=== PATIENT | female | born 1995 | race Caucasian/White ===

== ENCOUNTER 2024-03-09 10:43 | Observation (INO) | payer OTHER ==
[~2024-03-09] VITALS: Ht 160 cm; Wt 102.1 kg
[2024-03-09 10:47] VITALS: BP 170/110; PULSE 98; RESP 18; TEMP 98
[2024-03-09 11:29] LABS: BASOPHILS # (AUTO) 0.04 K/uL (0.00-0.20); BASOPHILS % (AUTO) 0.3 % (0.0-5.0); EOSINOPHILS # (AUTO) 0.24 K/uL (0.00-0.70); EOSINOPHILS % (AUTO) 1.8 % (0.0-8.0); HEMATOCRIT 34.5 % (36-48); IMMATURE GRANULOCYTE ABSOLUTE 0.08 K/uL (0-1); LYMPHOCYTES # (AUTO) 1.6 K/uL (1.0-4.8); LYMPHOCYTES % (AUTO) 11.4 % (21.0-51.0); MEAN CORPUSCULAR HGB CONC 33.9 g/dL (32.0-36.0); MEAN CORPUSCULAR VOLUME 91.5 fL (79-99); MONOCYTES # (AUTO) 0.7 K/uL (0.1-1.0); MONOCYTES % (AUTO) 5.4 % (3.0-13.0); NEUTROPHILS % (AUTO) 80.5 % (40.0-77.0); PLATELET COUNT (AUTO) 258 K/uL (130-400); RED BLOOD CELL COUNT(AUTO) 3.77 MIL/uL (4.00-5.50); RED CELL DISTRIBUTION WIDTH 13.1 % (11.0-15.5); WHITE BLOOD COUNT (AUTO) 13.6 K/uL (4.8-10.8)
[2024-03-09 11:30] LABS: APPEARANCE,URINE CLEAR (CLEAR); BILIRUBIN,URINE NEGATIVE (NEGATIVE); COLOR,URINE COLORLESS (YELLOW); GLUCOSE, URINE (UA) NEGATIVE (NEGATIVE); KETONES,URINE NEGATIVE (NEGATIVE); LEUKOCYTE ESTERASE ,URINE 75 Leu/uL (NEGATIVE); NITRATE,URINE NEGATIVE (NEGATIVE); OCCULT BLOOD,URINE NEGATIVE (NEGATIVE); PH,URINE 6.5 (5.0-8.0); PROTEIN,URINE NEGATIVE (NEGATIVE); UROBILINOGEN,URINE 0.2 mg/dL (0.2-1.0)
[2024-03-09 11:32] LABS: ADD UA MICROSCOPIC YES
[2024-03-09 11:36] LABS: RBC,URINE 0-1 /HPF (0-1); SQUAMOUS EPITHELIAL CELL,UR FEW /HPF (0-2)
[2024-03-09 11:39] LABS: CREATININE 0.6 mg/dL (0.5-1.0); POTASSIUM 4.1 mmol/L (3.5-5.1)
[2024-03-09 11:41] LABS: INR 0.94 (0.85-1.15); PROTHROMBIN TIME 10.2 SEC (9.6-11.6)
[2024-03-09 11:43] LABS: ALBUMIN 3.1 g/dL (3.5-5.0); BILIRUBIN,TOTAL 0.3 mg/dL (0.2-1.0); PARTIAL THROMBOPLASTIN TIME 28.5 SEC (26.3-35.5); TOTAL PROTEIN, SERUM 7.1 g/dL (6.0-8.3); URIC ACID 4.9 mg/dL (2.6-7.2)
== END 2024-03-09 12:52 | disposition home or self-care (01) ==
LOC: EDH 10:43 → LDH 10:44
PROVIDERS: ADMIT Obstetrics & Gynecology; ATTEND Obstetrics & Gynecology
DX: O13.3 Gestational [pregnancy-induced] hypertension without significant proteinuria, third trimester (principal); Z3A.30 30 weeks gestation of pregnancy; Z79.899 Other long term (current) drug therapy
CPT/HCPCS: 59025; 84550; 80053; 85025; 85384; 85610; 85730; 87086; 81001; 36415; G0378

== ENCOUNTER → 2024-03-10 | Outpatient (CLI) | payer OTHER ==
[2024-03-10 13:32] LABS: CREATININE,SERUM FOR CRCL 0.6 mg/dL (0.6-1.3)
== END | disposition home or self-care (01) ==
LOC: LAB 11:41
PROVIDERS: ATTEND Obstetrics & Gynecology
DX: I10 Essential (primary) hypertension (principal)
CPT/HCPCS: 82575; 84156

== ENCOUNTER 2024-04-13 14:05 | Observation (INO) | payer OTHER ==
[~2024-04-13] VITALS: Ht 160 cm; Wt 102.5 kg
[2024-04-13 14:21] VITALS: BP 144/103; PULSE 99; RESP 20; TEMP 98
[2024-04-13 14:58] LABS: BASOPHILS # (AUTO) 0.06 K/uL (0.00-0.20); BASOPHILS % (AUTO) 0.4 % (0.0-5.0); EOSINOPHILS # (AUTO) 0.16 K/uL (0.00-0.70); EOSINOPHILS % (AUTO) 1.2 % (0.0-8.0); HEMATOCRIT 35.9 % (36-48); IMMATURE GRANULOCYTE ABSOLUTE 0.12 K/uL (0-1); LYMPHOCYTES # (AUTO) 1.5 K/uL (1.0-4.8); MEAN CORPUSCULAR HEMOGLOBIN 31.1 pg (27.0-33.0); MEAN CORPUSCULAR HGB CONC 33.4 g/dL (32.0-36.0); MONOCYTES # (AUTO) 0.7 K/uL (0.1-1.0); MONOCYTES % (AUTO) 5.4 % (3.0-13.0); NEUTROPHILS # (AUTO) 11.1 K/uL (1.8-7.7); NEUTROPHILS % (AUTO) 81.1 % (40.0-77.0); PLATELET COUNT (AUTO) 241 K/uL (130-400); RED BLOOD CELL COUNT(AUTO) 3.86 MIL/uL (4.00-5.50); RED CELL DISTRIBUTION WIDTH 13.2 % (11.0-15.5); WHITE BLOOD COUNT (AUTO) 13.7 K/uL (4.8-10.8)
[2024-04-13 14:59] LABS: APPEARANCE,URINE CLEAR (CLEAR); BILIRUBIN,URINE NEGATIVE (NEGATIVE); COLOR,URINE COLORLESS (YELLOW); GLUCOSE, URINE (UA) NEGATIVE (NEGATIVE); KETONES,URINE NEGATIVE (NEGATIVE); LEUKOCYTE ESTERASE ,URINE NEGATIVE Leu/uL (NEGATIVE); NITRATE,URINE NEGATIVE (NEGATIVE); OCCULT BLOOD,URINE NEGATIVE (NEGATIVE); PH,URINE 6.5 (5.0-8.0); PROTEIN,URINE NEGATIVE (NEGATIVE); UROBILINOGEN,URINE 0.2 mg/dL (0.2-1.0)
[2024-04-13 15:06] LABS: ADD UA MICROSCOPIC YES; SQUAMOUS EPITHELIAL CELL,UR FEW /HPF (0-2)
[2024-04-13 15:12] LABS: INR <= 0.93 (0.85-1.15)
[2024-04-13 15:13] LABS: PARTIAL THROMBOPLASTIN TIME 24.2 SEC (26.3-35.5)
[2024-04-13 15:16] LABS: ALBUMIN 3.4 g/dL (3.5-5.0); BILIRUBIN,TOTAL 0.5 mg/dL (0.2-1.0); CREATININE 0.7 mg/dL (0.5-1.0); POTASSIUM 4.1 mmol/L (3.5-5.1); TOTAL PROTEIN, SERUM 7.1 g/dL (6.0-8.3); URIC ACID 5.1 mg/dL (2.6-7.2)
[2024-04-13 15:21] LABS: FIBRINOGEN 622 mg/dL (180-350)
--- NOTE | 2024-04-13 15:34 | HMCIMG ---
US FBP WO NON-STRESS HISTORY: well-being COMPARISON: None TECHNIQUE: Ultrasound biophysical profile study was performed. FINDINGS: Patient scored a total of 8 points with 2 points each for breathing movements, gross body movements, tone and amniotic fluid volume. Fetus is in cephalic presentation with longitudinal lie. heart rate is 150 to beats per minute. Amniotic fluid index is 14.7 centimeter. Placenta is located posteriorly. IMPRESSION: 1. Normal ultrasound biophysical profile study.
== END 2024-04-13 15:55 | disposition home or self-care (01) ==
LOC: EDH 14:05 → LDH 14:28
PROVIDERS: ADMIT Obstetrics & Gynecology; ATTEND Obstetrics & Gynecology
DX: O13.3 Gestational [pregnancy-induced] hypertension without significant proteinuria, third trimester (principal); Z3A.35 35 weeks gestation of pregnancy; Z79.899 Other long term (current) drug therapy
CPT/HCPCS: 84550; 80053; 85025; 85384; 85610; 85730; 81001; 36415; 76819; G0378; G0379; 59025

== ENCOUNTER 2024-04-20 11:01 | Observation (INO) | payer OTHER ==
[~2024-04-20] VITALS: Ht 160 cm; Wt 101.6 kg
[2024-04-20 11:02] VITALS: BP 144/97; PULSE 93; RESP 20; TEMP 98.6
--- NOTE | 2024-04-20 11:50 | HMCIMG ---
ULTRASOUND, BIOPHYSICAL PROFILE CLINICAL DATA INFORMATION: WELL BEING FINDINGS: breathin body movement: 2 tone: 2 Amniotic fluid volume: 2 Total: 8 IMPRESSION: Normal biophysical profile ultrasound, as described.
== END 2024-04-20 12:17 | disposition home or self-care (01) ==
LOC: EDH 11:01 → LDH 11:02
PROVIDERS: ADMIT Obstetrics & Gynecology; ATTEND Obstetrics & Gynecology
DX: O13.3 Gestational [pregnancy-induced] hypertension without significant proteinuria, third trimester (principal); Z3A.36 36 weeks gestation of pregnancy; Z79.899 Other long term (current) drug therapy
CPT/HCPCS: 76819; G0378; G0379; 59025

== ENCOUNTER 2024-04-25 13:42 | Inpatient (IN) | payer OTHER ==
[~2024-04-25] VITALS: Ht 160 cm; Wt 102.1 kg
[2024-04-25] MEDS ORDERED: ceFAZolin SODIUM 2 GM VIAL IVP PRN ×2 (14:30→15:00)
[2024-04-25] MEDS ORDERED: CALDOLOR 800MG+NS 250ML 250 ML IV PRN (14:30)
[2024-04-25] MEDS ORDERED: metoCLOPRAmide 10 MG/2 ML VIAL IVP PRN (14:30)
[2024-04-25 14:38] LABS: HEMATOCRIT 36.3 % (36-48); MEAN CORPUSCULAR HEMOGLOBIN 30.8 pg (27.0-33.0); MEAN CORPUSCULAR HGB CONC 33.1 g/dL (32.0-36.0); MEAN CORPUSCULAR VOLUME 93.1 fL (79-99); RED BLOOD CELL COUNT(AUTO) 3.9 MIL/uL (4.00-5.50); RED CELL DISTRIBUTION WIDTH 13.8 % (11.0-15.5); WHITE BLOOD COUNT (AUTO) 13.1 K/uL (4.8-10.8)
[2024-04-25] MEDS: metoCLOPRAmide 10 MG/2 ML VIAL IVP ONE (15:00)
[2024-04-25] MEDS: ondanSETRON 4MG INJ IVP ONE (15:00)
[2024-04-25] MEDS: LACTATED RINGERS 1000ML 1,000 ML IV SCH (15:01)
[2024-04-25 15:26] LABS: HIV 1&2 ANTIBODY Non-Reactive (Negative)
[2024-04-25 15:27] LABS: HIV-1 p24 Antigen Non-Reactive (Negative)
[2024-04-25] MEDS ORDERED: morPHINE PF 100MG/10ML AMP IV ONE (16:35)
[2024-04-25] MEDS ORDERED: OXYTOCIN LR IV ONE (16:36)
[2024-04-25] MEDS: ceFAZolin SODIUM 3 GM VIAL IVPB ONE (16:42)
[2024-04-25] MEDS ORDERED: ePHEDrine SULFate 50 MG/ML AMPULE ONE (16:49)
[2024-04-25] MEDS ORDERED: MEPERIDINE-PF 75 MG/ML SYG IM PRN (18:00)
[2024-04-25] MEDS ORDERED: 0.9%NACL 10ML VIAL IVP PRN (18:00)
[2024-04-25] MEDS ORDERED: PROMETHAZINE HCL 25 MG/ML 1ML AMPULE IM PRN (18:00)
[2024-04-25] MEDS: DEXTROSE 5 %-0.45 % NACL 1,000 ML IV PRN (21:50)
[2024-04-25 23:36] VITALS: BP 127/86; PULSE 84; RESP 18; TEMP 98.6
[2024-04-26] MEDS: CALDOLOR 800MG+NS 250ML 250 ML IV SCH (01:45)
[2024-04-26] MEDS ORDERED: BisaCODYL 10 MG SUPP.RECT RC PRN (04:30)
[2024-04-26] MEDS ORDERED: HYDROcodone/APAP 5/325 1 TAB TABLET PO PRN (04:30)
[2024-04-26 05:00] VITALS: BP 140/88; PULSE 91; RESP 16; TEMP 98.7
--- NOTE | 2024-04-26 05:20 | NUR ---
Patient resting comfortably in bed. Vital signs taken. IV site saline locked due to patient tolerating ice chips and liquids. Dixie care done. Yanes catheter removed. Incision dressing removed. Abdominal binder placed per patient request, mesh underwear applied. Gown changed. Patient tolerated all interventions well with no concerns or complaints.
[2024-04-26 06:53] LABS: HEMATOCRIT 32.6 % (36-48); MEAN CORPUSCULAR HEMOGLOBIN 31.1 pg (27.0-33.0); MEAN CORPUSCULAR HGB CONC 33.4 g/dL (32.0-36.0); MEAN CORPUSCULAR VOLUME 92.9 fL (79-99); RED BLOOD CELL COUNT(AUTO) 3.51 MIL/uL (4.00-5.50); RED CELL DISTRIBUTION WIDTH 13.6 % (11.0-15.5); WHITE BLOOD COUNT (AUTO) 13.7 K/uL (4.8-10.8)
--- NOTE | 2024-04-26 07:20 | NUR ---
Report given to Estella Patel for continuity of care.
[2024-04-26] MEDS: doCUSate SODIUM 100 MG CAP PO SCH (08:59)
--- NOTE | 2024-04-26 09:12 | OP ---
DATE OF PROCEDURE: 04/25/2024 PREOPERATIVE DIAGNOSES: 1. Intrauterine at 37 weeks and 1 day. 2. Previous section. 3. Chronic hypertension, on labetalol. 4. Maternal obesity. POSTOPERATIVE DIAGNOSES: 1. Intrauterine at 37 weeks and 1 day. 2. Previous section. 3. Chronic hypertension, on labetalol. 4. Maternal obesity. PROCEDURE: Repeat low transverse section via Pfannenstiel. SURGEON: Ashley Weaver MD ANESTHESIA: Spinal with Duramorph. COMPLICATIONS: None. QUANTITATIVE BLOOD LOSS: 585 mL. FINDINGS: Viable and vigorous female in cephalic presentation weighing 7 pounds 11.6 ounces (3505 g) with scores of 9 and 9, clear amniotic fluid. Normal uterus, tubes, and ovaries. DESCRIPTION OF PROCEDURE: The patient was taken to the operating room, where spinal anesthesia was obtained. She was prepped and draped in the usual sterile fashion in dorsal supine position with a leftward tilt. Timeout was done. Skin was marked. A Pfannenstiel skin incision was made with a scalpel and carried through to underlying layers of fascia with the Bovie. The fascia was incised in the midline and the incision extended laterally. Rectus muscles were dissected off the fascia. Midline was identified, the rectus muscles were sharply and the peritoneum entered bluntly with the surgeon's finger and the abdominal incision was extended superiorly and inferiorly with good visualization of the bladder. The Dexter O retractor was placed into the abdomen and set for appropriate tension. The vesicouterine peritoneum of the lower uterine segment was tented up, incised with the Metzenbaum's, the incision extended laterally, and the bladder flap created with sharp dissection. The lower uterine segment was then incised in a transverse fashion with the scalpel and the uterine incision extended with digital traction. The surgeon's hand was inserted through the hysterotomy. The 's head was gently grasped, flexed, brought to the incision. The bladder blade removed and the head delivered through the incision with the addition of fundal pressure. The remainder of the body was delivered without difficulty. The nares and mouth were bulb suctioned. The cord was doubly clamped and cut and the infant handed off to the awaiting manager presentation. Cord blood was collected for analysis. Placenta was removed manually. The uterus was exteriorized, cleared of all clots and debris with a moist laparotomy sponge until clean intrauterine cavity was noted. The hysterotomy was then repaired in a running locked fashion using 0 Vicryl and excellent hemostasis was obtained. The posterior aspect of the uterus was examined and found to be without defect. The uterus was returned to the abdomen. The pelvis was copiously irrigated with warm normal saline. The gutters were cleared of all clots and debris. The repaired incision was examined and found to be hemostatic. One sheet of Interceed was placed over the hysterotomy. All other instruments were then removed. The peritoneum was then closed in a running fashion using 2-0 Vicryl. The fascia and rectus muscles were serially inspected. Hemostasis was obtained throughout with the Bovie. The fascia was then closed in a running fashion using looped 0 PDS. The subcutaneous tissue was copiously irrigated with warm normal saline and excellent hemostasis was obtained throughout with the Bovie. The subcutaneous fat was approximated with simple interrupted stitches of 2-0 Vicryl and the skin closed in subcuticular fashion using Insorb feroz. The patient tolerated the procedure well. All sponge, lap, needle and instrument counts were correct x 2. She received 2 g of Ancef at the beginning of procedure. She was taken to the recovery room awake in stable condition. TID: [id number] RECEIPT: [id number]
[2024-04-26 09:22] VITALS: BP 131/71; PULSE 105; TEMP 98.2
[2024-04-26 11:07] LABS: RAPID PLASMA REAGIN NONREACTIVE (NONREACTIVE)
[2024-04-26 11:37] VITALS: BP 106/82; PULSE 89; TEMP 98.3
[2024-04-26] MEDS: LANOLIN 30GM OINTMENT TP PRN (12:58)
[2024-04-26] MEDS: acetaMINOPHEN 500 MG TABLET PO PRN (14:16)
[2024-04-26 16:30] VITALS: BP 126/85; PULSE 89; RESP 16; TEMP 98.1
[2024-04-26] MEDS: ibuPROFEN 600 MG TABLET PO PRN (17:25)
[2024-04-26 20:00] VITALS: BP 134/81; PULSE 92; RESP 18; TEMP 98.1
[2024-04-27] VITALS: BP 136/84; PULSE 86; RESP 18; TEMP 98.2
[2024-04-27] MEDS: acetaMINOPHEN WITH coDEINE 1 TAB TAB PO PRN (00:10)
[2024-04-27 03:47] VITALS: BP 134/82; PULSE 90; RESP 18; TEMP 98.2
[2024-04-27 05:59] VITALS: BP 150/80; PULSE 85; RESP 19; TEMP 97.5
--- NOTE | 2024-04-27 07:03 | NUR ---
SBAR REPORT GIVEN TO Yusra CHRISTOPHER RN FOR CONTINUITY OF CARE.
[2024-04-27 08:01] VITALS: BP 143/93; PULSE 89; TEMP 97.8
[2024-04-27] MEDS: SIMETHICONE 80 MG TAB.CHEW PO PRN (09:09)
[2024-04-27] MEDS: DIPH,PERTUSS(ACELL),TET VAC/PF 0.5 ML VIAL IM ONE (09:12)
--- NOTE | 2024-04-27 10:50 | NUR ---
DR SCHNEIDER UPDATE GIVEN TO DR SCHNEIDER VIA PHONE. PT MAY BE DISCHARGED HOME. FOLLOW-UP APPOINTMENT MADE. PT STATES SHE IS READY FOR DISCHARGE.
--- NOTE | 2024-04-27 12:15 | NUR ---
DISCHARGE DISCHARGED VIA WHEELCHAIR WITH IN ARMS, DEPARTED IN STABLE CONDITION VIA PRIVATE VEHICLE.
== END 2024-04-27 12:20 | disposition home or self-care (01) | DRG 787 ==
LOC: LDH 13:42 → WSH 20:02
PROVIDERS: ADMIT Obstetrics & Gynecology; ATTEND Obstetrics & Gynecology
PROC: 10D00Z1 Extraction of Products of Conception, Low, Open Approach (ICD-10-PCS; principal; 2024-04-25 16:39)
PROC: 3E0234Z Introduction of Serum, Toxoid and Vaccine into Muscle, Percutaneous Approach (ICD-10-PCS; 2024-04-27)
DX: O34.211 Maternal care for low transverse scar from previous cesarean delivery (principal); O10.92 Unspecified pre-existing hypertension complicating childbirth; O99.214 Obesity complicating childbirth; Z37.0 Single live birth; Z3A.37 37 weeks gestation of pregnancy; Z23 Encounter for immunization
CPT/HCPCS: 36415; 59510; 85027; 86592; 86701; 86850; 86900; 86901; 87340; 87390; 90715; A4344; G0378; J0690; J1741; J2274; J2405; J2765; J3490; J7042; J7120; A4248; A4649; C1765